=== PATIENT | male | born 1965 | race Caucasian/White ===

== ENCOUNTER → 2024-09-02 | Emergency (ER) | payer OTHER ==
[~2024-09-02] VITALS: Ht 172.7 cm; Wt 72.6 kg
[~2024-09-02] MED LIST: SEROQUEL200 MG PO
== END | disposition left against medical advice (07) ==
LOC: ER 07:14
DX: Z53.21 Procedure and treatment not carried out due to patient leaving prior to being seen by health care provider (principal)